=== PATIENT | male | born 1965 | race Caucasian/White ===

== ENCOUNTER 2016-08-23 12:45 | Outpatient (CLI) | payer OTHER ==
[2016-08-23 16:19] LABS: #Basophils 0.1 thou/uL (0.0-0.2); #Eosinphils 0.2 thou/uL (0.0-0.7); #Lymphocytes 1.7 thou/uL (1.20-3.40); #Monocytes 0.4 thou/uL (0.11-0.59); #Neutrophils 2.9 thou/uL (1.40-6.50); %Basophils 1.1 % (0.0-1.0); %Lymphocytes 32.2 % (21.0-51.0); %Monocytes 7.7 % (0.0-10.0); Hemoglobin 15.4 g/dL (14.0-18.0); Mean Corpuscular HGB CONC 34.2 g/dL (32.0-36.0); Mean Corpuscular Hemoglobin 32.1 pg (27.0-31.0); Mean Corpuscular Volume 93.8 fl (80.0-94.0); Platelet Count 188 thou/uL (130-400); Red Blood Cell (RBC) Count 4.79 mill/uL (4.70-6.10); White Blood Cell (WBC) Count 5.2 thou/uL (4.8-10.8)
[2016-08-23 16:39] LABS: ALT (SGPT) 28 U/L (0-55); AST (SGOT) 26 U/L (5-34); Albumin 4.8 g/dL (3.5-5.0); Alkaline Phosphatase 84 U/L (40-150); Anion Gap 16 mmol/L (10-20); BUN (Urea Nitrogen) 18 mg/dL (8.4-25.7); Bilirubin, Total 0.4 mg/dL (0.2-1.2); Calc. Creatinine Clearance 0 mL/min (70-130); Calcium 9.6 mg/dL (7.8-10.44); Carbon Dioxide 22 mmol/L (22-29); Cardiac Risk 3.8 (Less than 4.5); Chloride 106 mmol/L (98-107); Cholesterol 215 mg/dL (< 200 Desired); Estimated GFR-MDRD 82; Globulin 2.9 g/dL (2.4-3.5); Glucose 96 mg/dL (70-105); HDL Cholesterol 56 mg/dL (>60 Neg Risk); LDL Cholesterol, Calculated 140 mg/dL; Potassium 4.7 mmol/L (3.5-5.1); Protein, Total 7.7 g/dL (6.0-8.3); Sodium 139 mmol/L (136-145); Triglycerides 96 mg/dL (Less than 150)
[2016-08-23 18:25] LABS: Albumin (w/Testosterone Panel) 4.9 g/dL
[2016-08-23 18:52] LABS: Sex Hormone Binding Globulin 55.6 nmol/L (11-78); Testosterone, Free 119.5 pg/mL (47-244); Testosterone, Total 787.8 ng/dL (221-716)
[2016-08-23 19:40] LABS: Iron 82 ug/dL (65-175); Iron Binding Capacity, Total 366 mcg/dL (261-462)
== END 2016-08-23 12:46 ==
LOC: LABLEX 12:45
PROVIDERS: ATTEND Family Medicine
DX: R51 Headache (principal); R53.83 Other fatigue
CPT/HCPCS: 80053; 80061; 83540; 83550; 84270; 84403; 84443; 85025

== ENCOUNTER 2020-09-08 10:05 | Emergency (ER) | payer BC, OTHER | END 2020-09-08 11:01 | disposition home or self-care (01) | LOC: BURERS 10:05 | DX: M23.91 Unspecified internal derangement of right knee (principal); I10 Essential (primary) hypertension; Z79.899 Other long term (current) drug therapy; Z79.82 Long term (current) use of aspirin; W18.42XA Slipping, tripping and stumbling without falling due to stepping into hole or opening, initial encounter; Y99.0 Civilian activity done for income or pay ==